=== PATIENT | female | born 1945 | race Caucasian/White ===

== ENCOUNTER 2018-09-14 13:09 | Day surgery (SDC) | payer MEDICARE, OTHER ==
[~2018-09-14] VITALS: Ht 157.5 cm; Wt 58.1 kg
[~2018-09-14 13:09] MED LIST: AMLO5 PO; AZO CRANBERRY PO; CITRACAL SOFT1 EACH PO; CVS GLUCOSAMIN PO; FISH OIL 1,2001 EACH PO; IRBE150 PO; TYLENOL325 MG PO; VALS80 PO; VITAMIN D31000 UNIT PO; [UNRECOGNIZED DRUG - CODE] VAG
== END 2018-09-14 15:21 | disposition home or self-care (01) ==
LOC: ORSCSDS 13:09
PROVIDERS: Internal Medicine Gastroenterology
PROC: 0DBH8ZX Excision of Cecum, Via Natural or Artificial Opening Endoscopic, Diagnostic (ICD-10-PCS; principal; 2018-09-14 14:30)
PROC: 0DBK8ZX Excision of Ascending Colon, Via Natural or Artificial Opening Endoscopic, Diagnostic (ICD-10-PCS; principal; 2018-09-14 14:30)
DX: Z12.11 Encounter for screening for malignant neoplasm of colon (principal); Z86.010 Personal history of colon polyps; D12.0 Benign neoplasm of cecum; D12.2 Benign neoplasm of ascending colon; K57.30 Diverticulosis of large intestine without perforation or abscess without bleeding; Z87.891 Personal history of nicotine dependence; Z79.899 Other long term (current) drug therapy
CPT/HCPCS: 88305; J1980; J7120

== ENCOUNTER 2022-11-06 06:43 | Day surgery (SDC) | payer MEDICARE, OTHER ==
[~2022-11-06] VITALS: Ht 160 cm; Wt 66.1 kg
--- NOTE | 2022-11-06 08:01 | NUR ---
11/06/22 0801 Vidhi Trent 0658, CALI 0659
[2022-11-06 08:31] VITALS: BP 139/71
--- NOTE | 2022-11-06 08:48 | NUR ---
11/06/22 0848 RICHA EVANS PT DECLINED FOOD OR DRINK
== END 2022-11-06 08:45 | disposition home or self-care (01) ==
LOC: ORSCSDS 06:43
PROVIDERS: Ophthalmology
PROC: 08DK3ZZ Extraction of Left Lens, Percutaneous Approach (ICD-10-PCS; principal; 2022-11-06 08:00)
DX: H25.12 Age-related nuclear cataract, left eye (principal); I10 Essential (primary) hypertension; Z79.899 Other long term (current) drug therapy
CPT/HCPCS: J2001; J2250; J3010; J3301; J7040; V2632

== ENCOUNTER 2022-11-27 07:40 | Day surgery (SDC) | payer MEDICARE, OTHER ==
[~2022-11-27] VITALS: Ht 157.5 cm; Wt 65.0 kg
[2022-11-27] MEDS ORDERED: Premarin0.3 MG VAG (08:24)
--- NOTE | 2022-11-27 08:34 | NUR ---
11/27/22 0834 Agustín Winchester TETRACAINE GIVEN IN RIGHT EYE AT 0818. PLEDGET FOAM PLACED IN RIGHT EYE AT 0820. PT TOLERATED WELL. CALL LIGHT WITH IN REACH.
[2022-11-27 09:51] VITALS: BP 160/67
--- NOTE | 2022-11-27 10:09 | NUR ---
11/27/22 1009 RICHAR FUENTES IV REMOVED FROM RIGHT FOREARM AT 0947. SITE WNL, CANULA INTACT, PT TOLERATED PROCEDURE WELL.
== END 2022-11-27 10:07 | disposition home or self-care (01) ==
LOC: ORSCSDS 07:40
PROVIDERS: Ophthalmology
PROC: 08DJ3ZZ Extraction of Right Lens, Percutaneous Approach (ICD-10-PCS; principal; 2022-11-27 09:00)
DX: H25.11 Age-related nuclear cataract, right eye (principal); Z96.1 Presence of intraocular lens; I10 Essential (primary) hypertension; Z79.899 Other long term (current) drug therapy
CPT/HCPCS: J2250; J3010; J3301; J7040; V2632